=== PATIENT | male | born 1985 | race Caucasian/White ===

== ENCOUNTER 2017-03-16 11:46 | Emergency (ER) | payer OTHER ==
[~2017-03-16] VITALS: Ht 180.3 cm; Wt 145.4 kg
[2017-03-16 11:49] VITALS: BP 143/95; PULSE 90; RESP 14; TEMP 98.1; O2SAT 97
--- NOTE | 2017-03-16 11:54 | PD ---
Physical Exam Date Seen by Provider: Mar 16, 2017 Time Seen by Provider: 11:49 MDM Supervised Visit with OPAL: No Narrative Course 31 YO left hand dominant M with complaint of laceration of index finger of left hand. 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 Last tetanus within 5 years. Vitals reviewed. Seen in triage, awaiting bed placement. Alma Culp Mar 16, 2017 11:54
--- NOTE | 2017-03-16 12:07 | PD ---
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 Reports seeing up-to-date on his tetanus vaccination. Reports paresthesias to the finger but has history of paresthesias to the left entire hand. Denies change in paresthesias. Denies loss of sensation, decreased range of motion, decreased strength of the finger. Has not taken any medications to alleviate symptoms. Has applied pressure to control bleeding. Bleeding is well- controlled. No known allergies. Has no other medical complaints. No other modifying factors or associated signs and symptoms. PFSH Past Medical History Medical History: Denies Significant Hx Cardiac Catheterization: Yes Coronary Artery Disease: Yes Diminished Hearing: No Immunizations Current: No Myocardial Infarction: Yes Tetanus Vaccination: < 5 Years Influenza Vaccination: No Past Surgical History Surgical History: No Previous Surgery Coronary Stent: Yes Social History Alcohol Use: Yes Tobacco Use: Yes Substance Use: No Allergies-Medications (Allergen,Severity, Reaction): Coded Allergies: No Known Allergies (Unverified , 03/16/17) Reported Meds & Prescriptions Reported Meds & Active Scripts Active Keflex (Cephalexin) 500 Mg Cap 500 Mg PO Q8H 7 Days Ibuprofen 800 Mg Tab 800 Mg PO Q6HR PRN Review of Systems Except as stated in HPI: all other systems reviewed are Neg Physical Exam Narrative GENERAL: Well-nourished, well-developed male patient, in no acute distress SKIN: Warm and dry. Left index finger with 2 lacerations; one approximately 3 cm to the top maximal lateral aspect and and one is approximately 1 cm to the distal ventral aspect; bleeding well controlled. Left index Finger with full range of motion, good opposition, sensory intact, less than 3 second cap refill. HEAD: Atraumatic. Normocephalic. EYES: Pupils equal and round. No scleral icterus. No injection or drainage. ENT: Mucosa pink and moist. Airway patent. NECK: Trachea midline. CARDIOVASCULAR: Regular rate. RESPIRATORY: No accessory muscle use. GASTROINTESTINAL: Obese. MUSCULOSKELETAL: No obvious deformities. No clubbing. No cyanosis. No edema. NEUROLOGICAL: Awake and alert. Oriented 3. No obvious cranial nerve deficits. Motor grossly within normal limits. Normal speech. PSYCHIATRIC: Appropriate mood and affect; insight and judgment normal. Data Data Last Documented VS Vital Signs Date Time Temp Pulse Resp B/P Pulse Ox O2 Delivery O2 Flow Rate FiO2 03/16/17 11:49 98.1 90 14 143/95 97 Orders Bupivacaine Pf 0.5% Inj (Marcaine Pf 0.5 (03/16/17 12:15) Lidocaine 1% Inj (50 Ml) (Xylocaine 1% I (03/16/17 12:15) MDM Medical Decision Making Medical Screen Exam Complete: Yes Emergency Medical Condition: Yes Medical Record Reviewed: Yes Differential Diagnosis Laceration, cut, abrasion Narrative Course 31-year-old male with laceration to his left index finger 2. See my procedure note for laceration repair. Tetanus is up-to-date. Keflex, ibuprofen prescribed for home. Patient verbalizes understanding and agreement with treatment plan. Patient is medically cleared and stable for discharge. Discussed reasons to return to the emergency department. Instructed patient to follow up with primary care provider. Patient agrees with treatment plan. The patients vital signs are stable and the patient is stable for outpatient follow- up and treatment. Patient discharged home, stable and in no acute distress. Procedures Procedure Narrative LACERATION LOCATION: Left index finger, proximal, lateral aspect LENGTH: 3 cm NUMBER OF STITCHES/ADAMS: 5 simple interrupted sutures REPAIR: The area of the laceration was prepped with Betadine and sterilely draped. The finger was digitally blocked with 1% lidocaine and 0.5% bupivacaine. The wound was copiously irrigated and explored without evidence of foreign body, tendon injury or neurovascular injury. The wound was closed using 4-0 Prolene. This was a single layer repair. A sterile dressing was applied. The patient was advised to keep the dressing clean and dry. Patient tolerated the procedure well. LACERATION LOCATION: Left index finger, distal, ventral aspect LENGTH: 1 cm NUMBER OF STITCHES/ADAMS: 2 simple interrupted sutures REPAIR: The area of the laceration was prepped with Betadine and sterilely draped. The finger was digitally blocked with 1% lidocaine and 0.5% bupivacaine. The wound was copiously irrigated and explored without evidence of foreign body, tendon injury or neurovascular injury. The wound was closed using 4-0 Prolene. This was a single layer repair. A sterile dressing was applied. The patient was advised to keep the dressing clean and dry. Patient tolerated the procedure well. Diagnosis Primary Impression: Finger laceration Qualified Code: S61.211A - Laceration of left index finger without damage to nail, foreign body presence unspecified, initial encounter Referrals: Primary Care Physician Patient Instructions: Care For Your Stitches (ED), Finger Laceration (ED), General Instructions Departure Forms: Tests/Procedures, Work Release Enter return to work date: Mar 17, 2017 Additional Instructions: Antibiotics as prescribed Keep area clean and dry Limit left index finger activity to decrease risk of sutures coming undone Ibuprofen or Tylenol as directed and as needed for pain and inflammation Ice pack to area as needed to decrease pain Return to the emergency department or follow up with primary care provider in 7 to 10 days for suture removal Follow up with primary care provider within 2-4 days Return to the emergency department immediately with worsening of symptoms, particularly if reddened streaks up or down the affected extremity from the suture site, fever, numbness/tingling in the affected extremity, loss of sensation in the affected extremity, severe swelling of the affected Med/Other Pt SpecificInfo: Prescription(s) given Scripts Cephalexin (Keflex)500 Mg [id number] Mg PO Q8H 7 Days Ref 0 Prov:Yarely Tavarez 03/16/17 Ibuprofen 800 Mg Sfr768 Mg PO Q6HR PRN (PAIN) #30 TAB Ref 0 Prov:Yarely Tavarez 03/16/17 Disposition: 01 DISCHARGE HOME Condition: Stable Yarely Tavarez Mar 16, 2017 12:07
[2017-03-16] MEDS ORDERED: BUPIVACAINE HCL PF 0.5% 10 ML VIAL INFIL ONE (12:15)
[2017-03-16] MEDS ORDERED: LIDOCAINE HCL 1% 50 ML VIAL INFIL ONE (12:15)
[2017-03-16] MEDS ORDERED: CEPH-460 PO (12:52)
[2017-03-16] MEDS ORDERED: IBUP800T23 PO (12:52)
== END 2017-03-16 13:10 | disposition home or self-care (01) ==
LOC: NEPK 11:46
DX: S61.211A Laceration without foreign body of left index finger without damage to nail, initial encounter (principal); I25.10 Atherosclerotic heart disease of native coronary artery without angina pectoris; I25.2 Old myocardial infarction; Z72.0 Tobacco use; W45.8XXA Other foreign body or object entering through skin, initial encounter; Y99.0 Civilian activity done for income or pay
CPT/HCPCS: 12002